=== PATIENT | female | born 1955 | race Caucasian/White ===

== ENCOUNTER → 2016-04-01 | Outpatient (CLI) | payer MEDICARE ==
--- NOTE | 2016-04-03 10:02 | MM ---
Reason for exam: screening (asymptomatic). Last mammogram was performed 5 years and 10 months ago. History: Patient is postmenopausal and is nulliparous. Physical Findings: A clinical breast exam by your physician is recommended on an annual basis and results should be correlated with mammographic findings. MG 3D Screening Mammo W/Cad Bilateral CC and MLO view(s) were taken. Prior study comparison: May 15, 2010, mammogram, performed at [facility]. The breast tissue is almost entirely fat. There is no discrete abnormality. ASSESSMENT: Negative, BI-RAD 1 RECOMMENDATION: Routine screening mammogram of both breasts in 1 year.
== END | disposition home or self-care (01) ==
LOC: RADMAMWWP 11:30
PROVIDERS: ATTEND Family Medicine
DX: Z12.31 Encounter for screening mammogram for malignant neoplasm of breast (principal)
CPT/HCPCS: 77063; G0202

== ENCOUNTER → 2017-04-22 | Outpatient (CLI) | payer MEDICARE | END | disposition home or self-care (01) | LOC: CPPFTMAIN 10:07 | PROVIDERS: ATTEND Family Medicine | DX: J44.9 Chronic obstructive pulmonary disease, unspecified (principal) | CPT/HCPCS: 94060; 94726; 94729 ==

== ENCOUNTER → 2019-12-29 | Outpatient (CLI) | payer MEDICARE ==
--- NOTE | 2019-12-29 15:43 | XR ---
EXAMINATION TYPE: XR hand complete LT DATE OF EXAM: 12/29/2019 COMPARISON: None HISTORY: Pain TECHNIQUE: Left hand is examined in 3 views. The ring is present during the exam. FINDINGS: No acute fracture or dislocation is evident. Soft tissues appear normal. Follow-up exams can be performed 7-10 days from acute trauma for continued pain. IMPRESSION: 1. No acute osseous abnormality.
== END | disposition home or self-care (01) ==
LOC: RADXRMAIN 15:07
PROVIDERS: ATTEND Nurse Practitioner Family
DX: M79.642 Pain in left hand (principal)

== ENCOUNTER → 2020-01-06 | Outpatient (CLI) | payer MEDICARE ==
--- NOTE | 2020-01-11 13:17 | MM ---
Reason for exam: screening (asymptomatic). Last mammogram was performed 3 years and 9 months ago. History: Patient is postmenopausal and is nulliparous. Physical Findings: A clinical breast exam by your physician is recommended on an annual basis and results should be correlated with mammographic findings. MG 3D Screening Mammo W/Cad Bilateral CC and MLO view(s) were taken. Prior study comparison: April 01, 2016, bilateral MG 3d screening mammo w/cad. May 15, 2010, mammogram, performed at [facility]. There are scattered fibroglandular densities. No significant changes when compared with prior studies. ASSESSMENT: Negative, BI-RAD 1 RECOMMENDATION: Routine screening mammogram of both breasts in 1 year.
== END | disposition home or self-care (01) ==
LOC: RADMAMWWP 13:00
PROVIDERS: ATTEND Family Medicine
DX: Z12.31 Encounter for screening mammogram for malignant neoplasm of breast (principal)
CPT/HCPCS: 77063; 77067

== ENCOUNTER 2020-04-12 06:14 | Day surgery (SDC) | payer MEDICARE ==
[2020-04-10 16:06] VITALS: BMI 37.8
[~2020-04-12 06:14] MED LIST: ATROPINE OPHTH SOLN 1% 5ML BTL BOTH EYES PRN; LACTATED RINGERS 1,000 ML IV SCH; MOXIFLOXACIN HCL 0.5% DROPS 3 ML BTL OP PRN; TETRACAINE 0.5% OPHTH (PF) DROPS 4 ML BTL OP PRN; TIMOLOL 0.5% OPHTH DROPS 5 ML BTL OP PRN
[2020-04-12] MEDS: CYCLOPENTOLATE 1% OPHTH SOLN 2 ML BTL OP PRN ×3 (06:40→06:59)
[2020-04-12] MEDS: PHENYLEPHRINE 2.5% OPHTH DRP 2ML OP PRN ×3 (06:47→07:05)
[2020-04-12 07:13] VITALS: TEMP 98.2
[2020-04-12] MEDS ORDERED: INSULIN ASPART (NovoLOG) 100 UNIT/ML VIAL SQ ONE (07:15)
[2020-04-12 07:22] LABS: Glucose,Whole Blood 226 mg/dL (75-99)
[2020-04-12] MEDS ORDERED: MIDAZOLAM 2 MG/2 ML VIAL ONE (07:29)
[2020-04-12] MEDS ORDERED: fentaNYL (PF) 50 MCG/ML 2 ML AMP ONE (07:29)
[2020-04-12] MEDS ORDERED: EPINEPHrine (PF) 0.3 ML in BALANCED SALT IRRIG SOLN COMB2 500 ML IRRIGATION ONE (07:43)
[2020-04-12] MEDS ORDERED: BALANCED SALT IRRIG SOLN COMB2 15 ML IRRIG.SOLN IRRIGATION ONE (07:45)
[2020-04-12] MEDS ORDERED: HYALURONATE SODIUM INTRAOCULAR 1 EACH SYRINGE (12MG/ML) INTRAOCULA ONE (07:47)
[2020-04-12] MEDS ORDERED: LIDOCAINE 1% (PF) 10MG/ML VIAL SQ ONE (07:54)
--- NOTE | 2020-04-12 08:04 | P.OP ---
Date of Procedure: 04/12/20 Preoperative Diagnosis: ns & cs & psc Postoperative Diagnosis: same Procedure(s) Performed: PIOL, OD Implants: [id number] 21.00 Anesthesia: MAC Surgeon: Pascual Zepeda Pathology: none sent Condition: stable Disposition: same day Indications for Procedure: blurry vision Operative Findings: no complications
[2020-04-12 08:09] VITALS: RESP 16
[2020-04-12 08:24] VITALS: BP 155/71; PULSE 77
--- NOTE | 2020-04-12 20:39 | OP ---
OPERATIVE REPORT DATE OF SURGERY: 04/12/2020 PROCEDURE: Phacoemulsification of cataract and intraocular lens implant of the right eye. PREOPERATIVE DIAGNOSIS: Nuclear sclerosis, cortical sclerosis, posterior subcapsular cataract. POSTOPERATIVE DIAGNOSIS: Nuclear sclerosis, cortical sclerosis, posterior subcapsular cataract. ESTIMATED BLOOD LOSS: Zero. SPECIMEN TAKEN: None. NARRATIVE: After obtaining the appropriate consent, the patient was brought to the operating room, where the patient was placed under cardiac monitoring and prepped and draped in the usual sterile manner. At the 11 o'clock position a 15-degree super sharp blade was used to create a paracentesis followed by instillation of 1% Xylocaine MPF 50:50 mix with BSS into the anterior chamber. This was followed by viscoelastic to stabilize the anterior chamber. At the 9 o'clock position a self-sealing corneal flap incision was created using 2.8 mm mani keratome. A cystotome was used to initiate a continuous tear capsulorrhexis which was completed with the Utrata forceps. A Binkhorst cannula was used to hydrodissect the lens nucleus followed by hydrodelineation. Phacoemulsification of the lens was performed utilizing phaco chop in 12.29 seconds at 11% power. The remaining cortical material was removed using the irrigation and aspiration mode followed by additional 1% Xylocaine MPF into the anterior chamber followed by viscoelastic to stabilize the capsular bag. A Bausch and Lomb MX 60E 21.0 diopters posterior chamber lens was placed into the capsular bag without difficulty. The remaining viscoelastic material was removed from the anterior chamber with the irrigation/aspiration. Balanced salt solution was used to normalize the intraocular pressure. The incision was checked for watertight integrity. The patient then received two drops of 0.5% Timolol followed by two drops Vigamox and was lightly patched and shielded in the usual manner. There were no complications from the procedure. The patient tolerated the procedure well and was returned to Recovery in good condition. MMODL / IJN: [id number] /
== END 2020-04-12 08:48 | disposition home or self-care (01) ==
LOC: OR 06:14
PROVIDERS: ATTEND Ophthalmology
DX: H25.811 Combined forms of age-related cataract, right eye (principal); Z98.42 Cataract extraction status, left eye; Z96.1 Presence of intraocular lens
CPT/HCPCS: 66984; C1780; J2250; J0171; J3010; J2001

== ENCOUNTER → 2021-11-22 | Outpatient (CLI) | payer MEDICARE ==
--- NOTE | 2021-11-23 07:47 | MM ---
Reason for Exam: Screening (asymptomatic). Last mammogram was performed 1 year(s) and 10 month(s) ago. Patient History: Menarche at age 13. Patient has no children. Postmenopausal. Risk Values: Daya 5 year model risk: 1.9%. NCI Lifetime model risk: 8.1%. Prior Study Comparison: 05/15/2010 Screening Mammogram, [facility]. 04/01/2016 Bilateral Screening Mammogram, [facility]. 01/06/2020 Bilateral Screening Mammogram, [facility]. Tissue Density: There are scattered fibroglandular densities. Findings: Analyzed By CAD. There is no suspicious group of microcalcifications or new suspicious mass in either breast. Overall Assessment: Negative, BI-RAD 1 Management: Screening Mammogram of both breasts in 1 year. A clinical breast exam by your physician is recommended on an annual basis and results should be correlated with mammographic findings. Electronically signed and approved by: Lakhwinder Mackey M.D. Radiologis
== END | disposition home or self-care (01) ==
LOC: RADMAMWWP 14:30
PROVIDERS: ATTEND Family Medicine
DX: Z12.31 Encounter for screening mammogram for malignant neoplasm of breast (principal); Z78.0 Asymptomatic menopausal state
CPT/HCPCS: 77063; 77067

== ENCOUNTER 2022-12-12 19:16 | Emergency (ER) | payer OTHER ==
[2022-12-12 19:29] VITALS: PULSE 94; TEMP 98
--- NOTE | 2022-12-12 19:55 | ED ---
Abdominal Pain HPI - General Chief Complaint: Abdominal Pain Stated Complaint: Abd Pain Time Seen by Provider: 12/12/22 19:30 Source: patient, EMS Mode of arrival: EMS - History of Present Illness Initial Comments: This patient is a 66-year-old woman who presents to have evaluation for right lower abdominal pain. The patient states that she had been well most of the day and then approximately 1 hour before coming in she had onset of sharp, severe, right lower quadrant pain. Patient states that it brought her to her knees. The pain has subsequently improved somewhat. No fever or chills. No associated symptoms. MD Complaint: abdominal pain Onset/Timin -: hour(s) Location: RLQ Radiation: none Migration to: no migration Severity: severe Quality: sharp Consistency: constant Improves With: nothing Worsens With: nothing Associated Symptoms: denies other symptoms - Related Data Home Medications Medication Instructions Recorded Confirmed Albuterol Sulfate [Proair Hfa] 1 - 2 puff INHALATION RT-Q6H PRN 04/10/20 12/12/22 Atorvastatin [Lipitor] 80 mg PO HS 04/10/20 12/12/22 Gabapentin [Neurontin] 300 mg PO TID 04/10/20 12/12/22 HYDROcodone/APAP 5-325MG [Semora 0.5 tab PO Q6HR PRN 04/10/20 12/12/22 5-325] Insulin Glargine,Hum.rec.anlog 30 units SQ DAILY 04/10/20 12/12/22 [Toujeo Solostar] Multivit-Min/Iron/Folic/Lutein 1 each PO DAILY 04/10/20 12/12/22 [Centrum Silver Women Tablet] busPIRone HCL 10 mg PO BID 04/10/20 12/12/22 Levothyroxine Sodium [Synthroid] 75 mcg PO DAILY 12/12/22 12/12/22 Magnesium 250 mg PO DAILY 12/12/22 12/12/22 Meclizine [Antivert] 25 mg PO DAILY PRN 12/12/22 12/12/22 Pioglitazone [Actos] 30 mg PO DAILY 12/12/22 12/12/22 Potassium Gluconate 99 mg PO DAILY 12/12/22 12/12/22 Semaglutide [Ozempic] 2 mg SQ TH 12/12/22 12/12/22 lisinopriL [Zestril] 10 mg PO DAILY 12/12/22 12/12/22 metFORMIN HCL 1,000 mg PO BID 12/12/22 12/12/22 Allergies Allergy/AdvReac Type Severity Reaction Status Date / Time No Known Allergies Allergy Verified 12/12/22 20:45 Review of Systems ROS Statement: Those systems with pertinent positive or pertinent negative responses have been documented in the HPI. ROS Other: All systems not noted in ROS Statement are negative. Constitutional: Denies: fever, chills Respiratory: Denies: cough, dyspnea Cardiovascular: Denies: chest pain, palpitations Gastrointestinal: Reports: abdominal pain. Denies: diarrhea, constipation, melena, hematochezia Genitourinary: Denies: dysuria, frequency, hematuria Musculoskeletal: Denies: back pain Skin: Denies: rash Neurological: Denies: headache, weakness, numbness Past Medical History Past Medical History: Asthma, COPD, Diabetes Mellitus, Fibromyalgia, Hyperlipidemia, Hypertension, Musculoskeletal Disorder, Thyroid Disorder Additional Past Medical History / Comment(s): IBS, neuropathy feet, sciatic pain History of Any Multi-Drug Resistant Organisms: None Reported Past Surgical History: Tonsillectomy Additional Past Surgical History / Comment(s): hemorrhoidectomy, left cataract removed Past Anesthesia/Blood Transfusion Reactions: No Reported Reaction Past Psychological History: Anxiety Smoking Status: Former smoker General Exam General appearance: alert, in no apparent distress Head exam: Present: atraumatic, normocephalic Eye exam: Present: normal appearance. Absent: scleral icterus, conjunctival injection ENT exam: Present: normal oropharynx Neck exam: Present: normal inspection Respiratory exam: Present: normal lung sounds bilaterally. Absent: respiratory distress, wheezes, rales, rhonchi, stridor Cardiovascular Exam: Present: regular rate, normal rhythm, normal heart sounds. Absent: systolic murmur, diastolic murmur, rubs, gallop GI/Abdominal exam: Present: soft, tenderness. Absent: distended, guarding, rebound, rigid, mass, pulsatile mass Extremities exam: Present: normal inspection, normal capillary refill. Absent: pedal edema, calf tenderness Back exam: Present: normal inspection. Absent: CVA tenderness (R), CVA tenderness (L) Neurological exam: Present: alert Skin exam: Present: warm, dry, intact, normal color. Absent: rash Course Vital Signs 12/12/22 12/12/22 19:19 22:38 Temperature 98 F Pulse Rate 94 94 Respiratory 15 16 Rate Blood Pressure 139/74 145/85 O2 Sat by Pulse 96 96 Oximetry Medical Decision Making - Medical Decision Making The patient had CT of the abdomen and pelvis which I interpreted as not showing acute surgical condition or kidney stone. No free air/obstruction Was pt. sent in by a medical professional or institution (, PA, AIRDROP SYSTEMS TECHNICIAN, urgent care, hospital, or senior living...) When possible be specific @ -[No] Did you speak to anyone other than the patient for history (EMS, parent, family, police, friend...)? What history was obtained from this source @ -[No] Did you review nursing and triage notes (agree or disagree)? Why? @ -[I reviewed and agree with nursing and triage notes] Were old charts reviewed (outside hosp., previous admission, EMS record, old EKG, old radiological studies, urgent care reports/EKG's, senior living records)? Report findings @ -[No old charts were reviewed] Differential Diagnosis (chest pain, altered mental status, abdominal pain women, abdominal pain men, vaginal bleeding, weakness, fever, dyspnea, syncope, headache, dizziness, GI bleed, back pain, seizure, CVA, palpatations, mental health, musculoskeletal)? @ -[Differential Abdominal Pain Women: Appendicitis, Cholecystitis, diverticulosis, ischemic bowel, pancreatitis, hepatitis, UTI, gastroenteritis, AAA, incarcerated hernia, bowel obstruction, constipation, inflammatory bowel, hepatitis, peptic ulcer disease, splenic infarction, perforated viscus, vulvitis, ovarian torsion, PID, kidney stone, placenta abruption, this is not meant to be an all-inclusive list EKG interpreted by me (3pts min.). @ -[As above] X-rays interpreted by me (1pt min.). @ -[None done] CT interpreted by me (1pt min.). @ -[I interpreted as above U/S interpreted by me (1pt. min.). @ -[None done] What testing was considered but not performed or refused? (CT, X-rays, U/S, labs)? Why? @ -[None] What meds were considered but not given or refused? Why? @ -[None] Did you discuss the management of the patient with other professionals (professionals i.e. , PA, AIRDROP SYSTEMS TECHNICIAN, lab, RT, psych nurse, social work lecturer, direct sales consultant, teacher, records officer, caseworker)? Give summary @ -[No] Was smoking cessation discussed for >3mins.? @ -[No] Was critical care preformed (if so, how long)? @ -[No] Were there social determinants of health that impacted care today? How? (Homelessness, low income, unemployed, alcoholism, drug addiction, transportation, low edu. Level, literacy, decrease access to med. care, [facility], rehab)? @ -[No] Was there de-escalation of care discussed even if they declined (Discuss DNR or withdrawal of care, Hospice)? DNR status @ -[No] What co-morbidities impacted this encounter? (DM, HTN, Smoking, COPD, CAD, Cancer, CVA, ARF, Chemo, Hep., AIDS, mental health diagnosis, sleep apnea, morbid obesity)? @ -[None] Was patient admitted / discharged? Hospital course, mention meds given and route, prescriptions, significant lab abnormalities, going to OR and other pertinent info. @ -[Patient is 67-year-old woman with right lower abdominal pain. The patient is feeling better on reevaluation when I discussed the study results. At this point she would like to go home. We discussed appropriate further care and follow-up as well as return parameters. Undiagnosed new problem with uncertain prognosis? @ -[No] Drug Therapy requiring intensive monitoring for toxicity (Heparin, Nitro, Insulin, Cardizem)? @ -[No] Were any procedures done? @ -[No] Diagnosis/symptom? @ -[Acute abdominal pain Acute, or Chronic, or Acute on Chronic? @ -[Acute Uncomplicated (without systemic symptoms) or Complicated (systemic symptoms)? @ -[Uncomplicated Side effects of treatment? @ -[No] Exacerbation, Progression, or Severe Exacerbation? @ -[No] Poses a threat to life or bodily function? How? (Chest pain, USA, NE, pneumonia, PE, COPD, DKA, ARF, appy, cholecystitis, CVA, Diverticulitis, Homicidal, Suicidal, threat to staff... and all critical care pts) @ -[No] - Lab Data Result diagrams: 12/12/22 20:37 10/12/23 20:37 Lab Results 12/12/22 12/12/22 12/12/22 Range/Units 20:37 20:37 20:37 WBC 7.4 (3.8-10.6) k/uL RBC 4.57 (3.80-5.40) m/uL Hgb 14.3 (11.4-16.0) gm/dL Hct 42.7 (34.0-46.0) % MCV 93.5 (80.0-100.0) fL MCH 31.3 (25.0-35.0) pg MCHC 33.5 (31.0-37.0) g/dL RDW 13.9 (11.5-15.5) % Plt Count 213 (150-450) k/uL MPV 9.2 Neutrophils % 52 % Lymphocytes % 32 % Monocytes % 6 % Eosinophils % 6 % Basophils % 1 % Neutrophils # 3.8 (1.3-7.7) k/uL Lymphocytes # 2.4 (1.0-4.8) k/uL Monocytes # 0.5 (0-1.0) k/uL Eosinophils # 0.5 (0-0.7) k/uL Basophils # 0.0 (0-0.2) k/uL Sodium 139 (137-145) mmol/L Potassium 4.4 (3.5-5.1) mmol/L Chloride 106 (98-107) mmol/L Carbon Dioxide 21 L (22-30) mmol/L Anion Gap 12 mmol/L BUN 14 (7-17) mg/dL Creatinine 0.54 (0.52-1.04) mg/dL Est GFR (CKD-EPI)AfAm >90 (>60 ml/min/1.73 sqM) Est GFR (CKD-EPI)NonAf >90 (>60 ml/min/1.73 sqM) Glucose 96 (74-99) mg/dL Calcium 9.3 (8.4-10.2) mg/dL Total Bilirubin 0.4 (0.2-1.3) mg/dL AST 19 (14-36) U/L ALT 15 (4-34) U/L Alkaline Phosphatase 68 (38-126) U/L Total Protein 7.0 (6.3-8.2) g/dL Albumin 4.0 (3.5-5.0) g/dL Amylase 60 (30-110) U/L Lipase 229 (23-300) U/L Urine Color Colorless Urine Appearance Clear (Clear) Urine pH 5.0 (5.0-8.0) Ur Specific Welsh 1.016 (1.001-1.035) Urine Protein Negative (Negative) Urine Glucose (UA) 4+ H (Negative) Urine Ketones Negative (Negative) Urine Blood Negative (Negative) Urine Nitrite Negative (Negative) Urine Bilirubin Negative (Negative) Urine Urobilinogen <2.0 (<2.0) mg/dL Ur Leukocyte Esterase Moderate H (Negative) Urine RBC 1 (0-5) /hpf Urine WBC 10 H (0-5) /hpf Ur Squamous Epith Cells 1 (0-4) /hpf Urine Bacteria Rare H (None) /hpf - EKG Data -: EKG Interpreted by Me EKG shows normal: sinus rhythm, QRS complexes (Low-voltage QRS) Rate: normal (Rate 82 bpm) Interpretation: other (Possible old inferior NE) Disposition Clinical Impression: Abdominal pain Disposition: HOME SELF-CARE Condition: Good Instructions (If sedation given, give patient instructions): Abdominal Pain (ED) Is patient prescribed a controlled substance at d/c from ED?: No Referrals: Jerome Spicer Jr, [Primary Care Provider] - 1-2 days
--- NOTE | 2022-12-12 20:18 | CT ---
EXAMINATION TYPE: CT abdomen pelvis wo con DATE OF EXAM: 12/12/2022 COMPARISON: 11/21/2010 HISTORY: 66-year-old female Sharp RLQ pain x1hr. CT DLP: 949.6 mGycm. Automated exposure control for dose reduction was used. TECHNIQUE: Contiguous axial scanning of the abdomen and pelvis without IV contrast. Coronal and sagit lexis reconstructions performed. FINDINGS: Heart normal size without pericardial effusion. Calcified granuloma left base with some strandy atele ctasis of the lower lungs. Coronary artery calcifications. Aortic valvular calcifications. Tiny hiatal hernia. Noncontrast appearance of the liver, gallbladder, adrenal glands, kidneys, spleen with hilar splenule , and pancreas show no gross abnormality. Moderate atherosclerotic calcifications abdominal aorta. There are severe segmental stenoses in the b ilateral common iliac arteries. No dilated bowel, free fluid, or free air. No mesenteric or retroperitoneal lymphadenopathy. Normal appendix. Mild scattered stool. No pericolonic inflammatory change. Urine distended. Tiny pelvic phleboliths. Small postmenopausal uterus anteverted. Small bilateral ova smita. No abnormal fluid collection in the pelvis or pelvic lymphadenopathy. Bones: Mild degenerative change of the hips. Advanced hypertrophic facet arthropathy mid to lower lum bar spine with grade 2 anterolisthesis L4-L5. Mild spinal canal narrowing at L4-L5 from disc bulge an d ligamentum flavum thickening. IMPRESSION: 1. Normal appendix. No acute inflammatory process identified in the abdomen or pelvis to explain the patient's symptoms. 2. Tiny hiatal hernia. 3. Advanced facet arthropathy lower lumbar spine with grade 2 anterolisthesis at L4-L5.
[2022-12-12 20:47] LABS: Basophils % (A) 1 %; Eosinophils # (A) 0.5 k/uL (0-0.7); Eosinophils % (A) 6 %; HCT 42.7 % (34.0-46.0); HGB 14.3 gm/dL (11.4-16.0); Lymphocytes # (A) 2.4 k/uL (1.0-4.8); Lymphocytes % (A) 32 %; MCH 31.3 pg (25.0-35.0); MCHC 33.5 g/dL (31.0-37.0); MCV 93.5 fL (80.0-100.0); Mean Platelet Volume 9.2; Monocytes # (A) 0.5 k/uL (0-1.0); Monocytes % (A) 6 %; Neutrophils # (A) 3.8 k/uL (1.3-7.7); Neutrophils % (A) 52 %; Platelet Count 213 k/uL (150-450); RBC 4.57 m/uL (3.80-5.40); RDW 13.9 % (11.5-15.5); WBC 7.4 k/uL (3.8-10.6)
[2022-12-12 20:55] LABS: ALT 15 U/L (4-34); AST 19 U/L (14-36); African American GFR (CKD) >90 (>60 ml/min/1.73 sqM); Alkaline Phosphatase 68 U/L (38-126); Amylase 60 U/L (30-110); Anion Gap 12 mmol/L; Blood Urea Nitrogen 14 mg/dL (7-17); Calcium 9.3 mg/dL (8.4-10.2); Carbon Dioxide 21 mmol/L (22-30); Chloride 106 mmol/L (98-107); Glucose 96 mg/dL (74-99); Lipase 229 U/L (23-300); Non-African American GFR(CKD) >90 (>60 ml/min/1.73 sqM); Potassium 4.4 mmol/L (3.5-5.1); Sodium 139 mmol/L (137-145); Total Bilirubin 0.4 mg/dL (0.2-1.3)
[2022-12-12 21:10] LABS: Appearance,Urine Clear (Clear); Bacteria,Urine Rare /hpf; Bilirubin,Urine Negative (Negative); Blood,Urine Negative (Negative); Color,Urine Colorless; Glucose,Urine (UA) 4+ (Negative); Ketones,Urine Negative (Negative); Leukocyte Esterase,Urine Moderate (Negative); Nitrite,Urine Negative (Negative); Protein,Urine Negative (Negative); RBC,Urine 1 /hpf (0-5); Specific Gravity,Urine 1.016 (1.001-1.035); Squamous Epithelial Cell,Urine 1 /hpf (0-4); Urobilinogen,Urine <2.0 mg/dL (<2.0); WBC,Urine 10 /hpf (0-5)
[2022-12-12 22:47] VITALS: BP 145/85; RESP 16
== END 2022-12-12 22:38 | disposition home or self-care (01) ==
LOC: EC 19:16
DX: R10.31 Right lower quadrant pain (principal); E78.5 Hyperlipidemia, unspecified; E07.9 Disorder of thyroid, unspecified; I10 Essential (primary) hypertension; E11.9 Type 2 diabetes mellitus without complications; J44.9 Chronic obstructive pulmonary disease, unspecified; I25.2 Old myocardial infarction; F41.9 Anxiety disorder, unspecified; Z87.891 Personal history of nicotine dependence; Z79.84 Long term (current) use of oral hypoglycemic drugs; Z79.890 Hormone replacement therapy; Z79.899 Other long term (current) drug therapy
CPT/HCPCS: 36415; 74176; 80053; 81001; 82150; 83690; 85025; 93005; 99285

== ENCOUNTER → 2022-12-18 | Outpatient (CLI) | payer OTHER ==
--- NOTE | 2022-12-19 12:38 | MM ---
Reason for Exam: Screening (asymptomatic). Last mammogram was performed 1 year(s) and 1 month(s) ago. Patient History: Menarche at age 13. Patient has no children. Postmenopausal. Risk Values: Daya 5 year model risk: 2.0%. NCI Lifetime model risk: 7.9%. Prior Study Comparison: 04/01/2016 Bilateral Screening Mammogram, [facility]. 01/06/2020 Bilateral Screening Mammogram, [facility]. 11/22/2021 Bilateral MG 3D screening mammo w/cad, [facility]. Tissue Density: The breast tissue is almost entirely fat. Findings: Analyzed By CAD. There is no suspicious group of microcalcifications or new suspicious mass. Overall Assessment: Negative, BI-RAD 1 Management: Screening Mammogram of both breasts in [address] [facility] will attempt to contact patient to return for supplemental views and ultrasound if indicated. Patient should continue monthly self-breast exams. A clinical breast exam by your physician is recommended on an annual basis. This exam should not preclude additional follow-up of suspicious palpable abnormalities. Note on Daya scores and lifetime risk: 1. A Daya score greater than 3% is considered moderate risk. If this is the case, consider specialist referral to assess eligibility for a risk reducing agent. 2. If overall lifetime risk for the development of breast cancer is 20% or higher, the patient may qualify for future screening with alternating mammogram and breast MRI. Electronically signed and approved by: Reza Archibald DO
== END | disposition home or self-care (01) ==
LOC: RADMAMWWP 14:36
PROVIDERS: ATTEND Family Medicine
DX: Z12.31 Encounter for screening mammogram for malignant neoplasm of breast (principal); Z78.0 Asymptomatic menopausal state
CPT/HCPCS: 77063; 77067

== ENCOUNTER 2023-06-06 04:12 | Emergency (ER) | payer OTHER ==
[2023-06-06] MEDS: SODIUM CHLORIDE 0.9% 1,000 ML IV STA (06:05)
[2023-06-06] MEDS: ONDANSETRON 4 MG/2 ML VIAL IVP STA (06:05)
[2023-06-06 06:32] LABS: Basophils # (A) 0.1 k/uL (0-0.2); Basophils % (A) 1 %; Eosinophils # (A) 0.6 k/uL (0-0.7); Eosinophils % (A) 4 %; HCT 49.5 % (34.0-46.0); HGB 15.7 gm/dL (11.4-16.0); Lymphocytes # (A) 1.8 k/uL (1.0-4.8); Lymphocytes % (A) 13 %; MCH 30.3 pg (25.0-35.0); MCHC 31.8 g/dL (31.0-37.0); MCV 95.1 fL (80.0-100.0); Mean Platelet Volume 8.7; Monocytes # (A) 0.8 k/uL (0-1.0); Monocytes % (A) 6 %; Neutrophils # (A) 9.7 k/uL (1.3-7.7); Neutrophils % (A) 74 %; Platelet Count 276 k/uL (150-450); RDW 13.9 % (11.5-15.5); WBC 13.1 k/uL (3.8-10.6)
--- NOTE | 2023-06-06 06:35 | ED ---
Nausea/Vomiting/Diarrhea HPI - General Chief complaint: Nausea/Vomiting/Diarrhea Stated complaint: NVD abd pain Time Seen by Provider: 06/06/23 06:02 Source: patient, family, RN notes reviewed Mode of arrival: ambulatory Limitations: no limitations - History of Present Illness Initial comments: This is a 67-year-old female who presents to the emergency department for nausea, vomiting, and diarrhea. Symptoms started 3 days ago. She has generalized abdominal cramping from all of the vomiting and diarrhea, but denies any severe pain. She does have associated acid reflux. She was recently visiting her fianc in the hospital, and wonders if she may have gotten sick from there. Denies any fever/chills. MD complaint: nausea, vomiting, diarrhea - Related Data Home Medications Medication Instructions Recorded Confirmed Albuterol Sulfate [Proair Hfa] 1 - 2 puff INHALATION RT-Q6H PRN 04/10/20 12/12/22 Atorvastatin [Lipitor] 80 mg PO HS 04/10/20 12/12/22 Gabapentin [Neurontin] 300 mg PO TID 04/10/20 12/12/22 HYDROcodone/APAP 5-325MG [Evans 0.5 tab PO Q6HR PRN 04/10/20 12/12/22 5-325] Insulin Glargine,Hum.rec.anlog 30 units SQ DAILY 04/10/20 12/12/22 [Melanie Pierreostlibby] Multivit-Min/Iron/Folic/Lutein 1 each PO DAILY 04/10/20 12/12/22 [Centrum Silver Women Tablet] busPIRone HCL 10 mg PO BID 04/10/20 12/12/22 Levothyroxine Sodium [Synthroid] 75 mcg PO DAILY 12/12/22 12/12/22 Magnesium 250 mg PO DAILY 12/12/22 12/12/22 Meclizine [Antivert] 25 mg PO DAILY PRN 12/12/22 12/12/22 Pioglitazone [Actos] 30 mg PO DAILY 12/12/22 12/12/22 Potassium Gluconate 99 mg PO DAILY 12/12/22 12/12/22 Semaglutide [Ozempic] 2 mg SQ TH 12/12/22 12/12/22 lisinopriL [Zestril] 10 mg PO DAILY 12/12/22 12/12/22 metFORMIN HCL 1,000 mg PO BID 12/12/22 12/12/22 Previous Rx's Medication Instructions Recorded Ondansetron Odt [Zofran Odt] 4 mg PO Q8HR PRN #20 tab 06/06/23 Allergies Allergy/AdvReac Type Severity Reaction Status Date / Time No Known Allergies Allergy Verified 12/12/22 20:45 Review of Systems ROS Statement: Those systems with pertinent positive or pertinent negative responses have been documented in the HPI. ROS Other: All systems not noted in ROS Statement are negative. Past Medical History Past Medical History: Asthma, COPD, Diabetes Mellitus, Fibromyalgia, Hyper lipidemia, Hypertension, Musculoskeletal Disorder, Thyroid Disorder Additional Past Medical History / Comment(s): IBS, neuropathy feet, sciatic pain History of Any Multi-Drug Resistant Organisms: None Reported Past Surgical History: Tonsillectomy Additional Past Surgical History / Comment(s): hemorrhoidectomy, left cataract removed Past Anesthesia/Blood Transfusion Reactions: No Reported Reaction Past Psychological History: Anxiety Smoking Status: Former smoker Past Alcohol Use History: None Reported Past Drug Use History: None Reported General Exam Limitations: no limitations General appearance: alert, in no apparent distress Head exam: Present: atraumatic, normocephalic, normal inspection Respiratory exam: Present: normal lung sounds bilaterally. Absent: respiratory distress, wheezes, rales, rhonchi, stridor Cardiovascular Exam: Present: regular rate, normal rhythm, normal heart sounds. Absent: systolic murmur, diastolic murmur, rubs, gallop, clicks GI/Abdominal exam: Present: soft, normal bowel sounds. Absent: distended, tenderness, guarding, rebound, rigid Neurological exam: Present: alert, oriented X3, CN II-XII intact Psychiatric exam: Present: normal affect, normal mood Skin exam: Present: warm, dry, intact, normal color. Absent: rash Course Vital Signs 06/06/23 06/06/23 04:27 08:59 Temperature 97.6 F 97.9 F Pulse Rate 107 H 70 Respiratory 19 16 Rate Blood Pressure 131/75 119/74 O2 Sat by Pulse 96 96 Oximetry Medical Decision Making - Medical Decision Making This is a 67 year old female who presents to the emergency department for nausea and vomiting. Was pt. sent in by a medical professional or institution? @ -No Did you speak to anyone other than the patient for history? @ -No Did you review nursing and triage notes? @ -Yes, and I agree, it is accurate with regards to the patient's symptoms. Were old charts reviewed? @ -No Differential Diagnosis? @ -Differential Nausea and Vomiting: Gastroenteritis, cholecystitis, appendicitis, pancreatitis, migraine, benign positional vertigo, food borne illness, pyelonephritis, irritable bowel syndrome, influenza, Covid, GERD, incarcerated hernia, intestinal obstruction, this is not meant to be an all-inclusive list. EKG interpreted by me (3pts min.)? @ -Not obtained X-rays interpreted by me (1pt min.)? @ -Chest x-ray obtained, my interpretation identifies no localized consolidations or infiltrates. X-ray of the abdomen obtained. Interpretation identifies no evidence of bowel loop dilation. CT interpreted by me (1pt min.)? @ -Not obtained U/S interpreted by me (1pt. min.)? @ -Not obtained What testing was considered but not performed? (CT, X-rays, U/S, labs)? Why? @ -None What meds were considered but not given? Why? @ -None Did you discuss the management of the patient with other professionals? @ -No Did you reconcile home meds? @ -No Was smoking cessation discussed for >3mins.? @ -No Was critical care preformed (if so, how long)? @ -No Were there social determinants of health that impacted care today? How? (Homelessness, low income, unemployed, alcoholism, drug addiction, transportation, low edu. Level, literacy, decrease access to med. care, correction, rehab)? @ -No Was there de-escalation of care discussed even if they declined? (Discuss DNR or withdrawal of care, Hospice)? @ -No What co-morbidities impacted this encounter? (DM, HTN, Smoking, COPD, CAD, Cancer, CVA, Hep., AIDS, mental health diagnosis, sleep apnea, morbid obesity)? @ -IBS Was patient admitted / discharged? @ -Discharged. Lab work demonstrates mild leukocytosis, which is likely reactive, and was otherwise unremarkable. COVID, influenza, and RSV testing were negative. Chest x-ray reveals no acute process. X-ray of the abdomen demonstrates gas and an overall nonobstructive pattern. Patient treated with IV fluids, famotidine, and Zofran with significant relief in symptoms. She was tolerating oral intake afterwards and felt stable for discharge home. Prescription for Zofran provided with dosing instructions reviewed. Advised [id number] famotidine or pantoprazole for any additional esophageal reflux. Also advised [id number] Imodium as needed for diarrhea and close follow-up with her primary care provider. Undiagnosed new problem with uncertain prognosis? @ -None Drug Therapy requiring intensive monitoring for toxicity (Heparin, Nitro, Insulin, Cardizem)? @ -None Were any procedures done? @ -None Diagnosis/symptom? @ -Gastroenteritis Acute, or Chronic, or Acute on Chronic? @ -Acute Uncomplicated (without systemic symptoms) or Complicated (systemic symptoms)? @ -Uncomplicated Side effects of treatment? @ -None Exacerbation, Progression, or Severe Exacerbation] @ -Not applicable Poses a threat to life or bodily function? @ -No Return precautions reviewed in depth, the patient is instructed to return to the emergency department with any new, worsening, or concerning symptoms. Patient verbalized understanding. This case was discussed in detail with the attending ED physician, Dr. Ojeda. Presentation, findings, and treatment plan discussed in detail as well. - Lab Data Result diagrams: 06/06/23 06:06 06/06/23 06:06 Lab Results 06/06/23 06/06/23 06/06/23 Range/Units 06:06 06:06 06:31 WBC 13.1 H (3.8-10.6) k/uL RBC 5.20 (3.80-5.40) m/uL Hgb 15.7 (11.4-16.0) gm/dL Hct 49.5 H (34.0-46.0) % MCV 95.1 (80.0-100.0) fL MCH 30.3 (25.0-35.0) pg MCHC 31.8 (31.0-37.0) g/dL RDW 13.9 (11.5-15.5) % Plt Count 276 (150-450) k/uL MPV 8.7 Neutrophils % 74 % Lymphocytes % 13 % Monocytes % 6 % Eosinophils % 4 % Basophils % 1 % Neutrophils # 9.7 H (1.3-7.7) k/uL Lymphocytes # 1.8 (1.0-4.8) k/uL Monocytes # 0.8 (0-1.0) k/uL Eosinophils # 0.6 (0-0.7) k/uL Basophils # 0.1 (0-0.2) k/uL Sodium 139 (137-145) mmol/L Potassium 4.0 (3.5-5.1) mmol/L Chloride 107 (98-107) mmol/L Carbon Dioxide 19 L (22-30) mmol/L Anion Gap 13 mmol/L BUN 30 H (7-17) mg/dL Creatinine 0.75 (0.52-1.04) mg/dL Est GFR (CKD-EPI)AfAm >90 (>60 ml/min/1.73 sqM) Est GFR (CKD-EPI)NonAf 84 (>60 ml/min/1.73 sqM) Glucose 151 H (74-99) mg/dL Calcium 9.7 (8.4-10.2) mg/dL Total Bilirubin 0.5 (0.2-1.3) mg/dL AST 22 (14-36) U/L ALT 21 (4-34) U/L Alkaline Phosphatase 76 (38-126) U/L Total Protein 8.2 (6.3-8.2) g/dL Albumin 4.7 (3.5-5.0) g/dL Lipase 103 (23-300) U/L Urine Color Yellow Urine Appearance Cloudy H (Clear) Urine pH 5.5 (5.0-8.0) Ur Specific [place] 1.026 (1.001-1.035) Urine Protein 2+ H (Negative) Urine Glucose (UA) 3+ H (Negative) Urine Ketones Negative (Negative) Urine Blood Negative (Negative) Urine Nitrite Negative (Negative) Urine Bilirubin Negative (Negative) Urine Urobilinogen <2.0 (<2.0) mg/dL Ur Leukocyte Esterase Large H (Negative) Urine WBC 27 H (0-5) /hpf Ur Squamous Epith Cells 4 (0-4) /hpf Urine Bacteria Rare H (None) /hpf Cellular Casts 2 (0) /lpf Hyaline Casts 21 H (0-2) /lpf Urine Mucus Many H (None) /hpf Influenza Type A (PCR) (Not Detectd) Influenza Type B (PCR) (Not Detectd) RSV (PCR) (Not Detectd) SARS-CoV-2 (PCR) (Not Detectd) 06/06/23 Range/Units 06:39 WBC (3.8-10.6) k/uL RBC (3.80-5.40) m/uL Hgb (11.4-16.0) gm/dL Hct (34.0-46.0) % MCV (80.0-100.0) fL MCH (25.0-35.0) pg MCHC (31.0-37.0) g/dL RDW (11.5-15.5) % Plt Count (150-450) k/uL MPV Neutrophils % % Lymphocytes % % Monocytes % % Eosinophils % % Basophils % % Neutrophils # (1.3-7.7) k/uL Lymphocytes # (1.0-4.8) k/uL Monocytes # (0-1.0) k/uL Eosinophils # (0-0.7) k/uL Basophils # (0-0.2) k/uL Sodium (137-145) mmol/L Potassium (3.5-5.1) mmol/L Chloride (98-107) mmol/L Carbon Dioxide (22-30) mmol/L Anion Gap mmol/L BUN (7-17) mg/dL Creatinine (0.52-1.04) mg/dL Est GFR (CKD-EPI)AfAm (>60 ml/min/1.73 sqM) Est GFR (CKD-EPI)NonAf (>60 ml/min/1.73 sqM) Glucose (74-99) mg/dL Calcium (8.4-10.2) mg/dL Total Bilirubin (0.2-1.3) mg/dL AST (14-36) U/L ALT (4-34) U/L Alkaline Phosphatase (38-126) U/L Total Protein (6.3-8.2) g/dL Albumin (3.5-5.0) g/dL Lipase (23-300) U/L Urine Color Urine Appearance (Clear) Urine pH (5.0-8.0) Ur Specific [place] (1.001-1.035) Urine Protein (Negative) Urine Glucose (UA) (Negative) Urine Ketones (Negative) Urine Blood (Negative) Urine Nitrite (Negative) Urine Bilirubin (Negative) Urine Urobilinogen (<2.0) mg/dL Ur Leukocyte Esterase (Negative) Urine WBC (0-5) /hpf Ur Squamous Epith Cells (0-4) /hpf Urine Bacteria (None) /hpf Cellular Casts (0) /lpf Hyaline Casts (0-2) /lpf Urine Mucus (None) /hpf Influenza Type A (PCR) Not Detected (Not Detectd) Influenza Type B (PCR) Not Detected (Not Detectd) RSV (PCR) Not Detected (Not Detectd) SARS-CoV-2 (PCR) Not Detected (Not Detectd) - Radiology Data Radiology results: report reviewed, image reviewed Disposition Clinical Impression: Gastroenteritis Disposition: HOME SELF-CARE Instructions (If sedation given, give patient instructions): Acute Nausea and Vomiting (ED), Acute Diarrhea (ED) Additional Instructions: Return to the emergency department with any new, worsening, or concerning symptoms. You can take the Zofran up to every 8 hours as needed for nausea and vomiting. You can take [id number] Imodium as needed for the diarrhea. Slowly advance your diet as tolerated and remain well-hydrated. Follow up with your primary care provider in 1-2 days. Prescriptions: Ondansetron Odt [Zofran Odt] 4 mg PO Q8HR PRN #20 tab PRN Reason: Nausea And Vomiting Is patient prescribed a controlled substance at d/c from ED?: No Referrals: Jerome Spicer Jr, DO [Primary Care Provider] - 1-2 days Time of Disposition: 08:34
[2023-06-06 06:51] LABS: ALT 21 U/L (4-34); AST 22 U/L (14-36); African American GFR (CKD) >90 (>60 ml/min/1.73 sqM); Albumin 4.7 g/dL (3.5-5.0); Alkaline Phosphatase 76 U/L (38-126); Anion Gap 13 mmol/L; Blood Urea Nitrogen 30 mg/dL (7-17); Calcium 9.7 mg/dL (8.4-10.2); Carbon Dioxide 19 mmol/L (22-30); Chloride 107 mmol/L (98-107); Glucose 151 mg/dL (74-99); Lipase 103 U/L (23-300); Non-African American GFR(CKD) 84 (>60 ml/min/1.73 sqM); Sodium 139 mmol/L (137-145); Total Bilirubin 0.5 mg/dL (0.2-1.3); Total Protein 8.2 g/dL (6.3-8.2)
[2023-06-06] MEDS: FAMOTIDINE 20 MG/2 ML VIAL IV STA (06:57)
--- NOTE | 2023-06-06 07:03 | XR ---
EXAMINATION TYPE: XR chest 2V DATE OF EXAM: 06/06/2023 COMPARISON: Outside chest x-ray November 21, 2010 HISTORY: Chest pain. TECHNIQUE: Frontal and lateral views of the chest are obtained. FINDINGS: There is no focal air space opacity, pleural effusion, or pneumothorax seen. The cardiac silhouette size is stable and within normal limits with atherosclerotic change in the thoracic aorta redemonstrated. The osseous structures are intact. IMPRESSION: No acute cardiopulmonary process.
--- NOTE | 2023-06-06 07:04 | XR ---
EXAMINATION TYPE: XR abdomen 1V DATE OF EXAM: 06/06/2023 6:51 AM CLINICAL HISTORY: Vomiting TECHNIQUE: Two frontal KUB images of the abdomen are obtained. COMPARISON: CT abdomen and pelvis December 12, 2022 FINDINGS: Gas is seen in nondistended stomach. Scattered gas is seen in non-distended small and large bowel loops. A few scattered air-fluid levels which is nonspecific finding. No suspicious calcificat ions. The lung bases are clear and the osseous structures are intact. IMPRESSION: Overall nonspecific but favor nonobstructive bowel gas pattern.
[2023-06-06 07:29] LABS: Appearance,Urine Cloudy (Clear); Color,Urine Yellow; Glucose,Urine (UA) 3+ (Negative); PH, Urine 5.5 (5.0-8.0); Protein,Urine 2+ (Negative); Specific Gravity,Urine 1.026 (1.001-1.035)
[2023-06-06 07:30] LABS: Bacteria,Urine Rare /hpf; Bilirubin,Urine Negative (Negative); Blood,Urine Negative (Negative); Cellular Casts,Urine 2 /lpf (0); Hyaline Casts,Urine 21 /lpf (0-2); Ketones,Urine Negative (Negative); Leukocyte Esterase,Urine Large (Negative); Mucus,Urine Many /hpf; Nitrite,Urine Negative (Negative); Squamous Epithelial Cell,Urine 4 /hpf (0-4); Urobilinogen,Urine <2.0 mg/dL (<2.0); WBC,Urine 27 /hpf (0-5)
[2023-06-06] MEDS: KETOROLAC 15 MG/ML 1 ML VIAL IVP STA ×2 (07:37→08:43)
[2023-06-06] MEDS: DEXAMETHASONE SOD PHOSPHATE 10 MG/ML 1 ML VIAL IVP STA (08:40)
[2023-06-06] MEDS: ONDANSETRON 4 MG ODT STARTER PACK 2 TAB BTL PO STA (08:41)
[2023-06-06] MEDS: HYDROmorphone 0.5 MG/0.5 ML SYRINGE IVP STA (08:41)
[2023-06-06 09:20] VITALS: BP 119/74; PULSE 70; RESP 16; TEMP 97.9
== END 2023-06-06 09:01 | disposition home or self-care (01) ==
LOC: EC 04:12
DX: K52.9 Noninfective gastroenteritis and colitis, unspecified (principal); Z11.52 Encounter for screening for COVID-19; Z87.891 Personal history of nicotine dependence
CPT/HCPCS: 36415; 71046; 74018; 80053; 81001; 83690; 85025; 87636; 96361; 96374; 96375; 99284

== ENCOUNTER → 2023-12-09 | Outpatient (CLI) | payer MEDICARE, OTHER ==
--- NOTE | 2023-12-09 13:25 | US ---
EXAMINATION TYPE: US arterial LE single level DATE OF EXAM: 12/09/2023 12:57 PM CLINICAL INDICATION: Female, 67 years old with history of M79.604 PAIN IN R LEG M79.671 PAIN IN R FT; History of: Smoker: Previous Hypertension: Yes Diabetic: Yes Hyperlipidemia: Yes TIA/CVA: No Previous Vascular Surgery: No IL: No Vascular Ulcers: No Claudication: No Gangrene: No Doppler Waveforms: Right: Monophasic Left: Monophasic Right Brachial Pressure: 130 Left Brachial Pressure: 124 Ankle-Brachial Indices: Right: 0.58 Left: 0.75 (Vessel hardening > 1.4; Normal 0.9 - 1.4, Moderate 0.7 - 0.9, Severe 0.5-0.7) IMPRESSION: 1. Severe right lower extremity peripheral arteriovascular disease suggested. 2. Moderate left lower extremity peripheral arteriovascular disease suggested. [facility], , 12/09/2023 1:22 PM
--- NOTE | 2023-12-09 13:36 | XR ---
EXAMINATION TYPE: XR hand complete LT DATE OF EXAM: 12/09/2023 CLINICAL HISTORY: pain TECHNIQUE: Frontal, lateral and oblique images of the left hand are obtained. COMPARISON: None. FINDINGS: There is no acute fracture/dislocation evident. The joint spaces appear within normal limi ts. The overlying soft tissue appears unremarkable. IMPRESSION: There is no acute fracture or dislocation. ICD 10 NO FRACTURE, INITIAL EVALUATION [facility], , 12/09/2023 1:34 PM
== END | disposition home or self-care (01) ==
LOC: RADUSWWP 11:54
PROVIDERS: ATTEND Family Medicine
DX: M79.604 Pain in right leg (principal); M79.671 Pain in right foot; M79.645 Pain in left finger(s)
CPT/HCPCS: 93922

== ENCOUNTER → 2024-01-01 | Outpatient (CLI) | payer MEDICARE, OTHER ==
--- NOTE | 2024-01-01 13:53 | MM ---
Reason for Exam: Screening (asymptomatic). Last screening mammogram was performed 12 month(s) ago. Patient History: Menarche at age 13. Patient has no children. Postmenopausal. Risk Values: Daya 5 year model risk: 2.0%. NCI Lifetime model risk: 7.3%. Prior Study Comparison: 01/06/2020 Bilateral Screening Mammogram, [facility]. 11/22/2021 Bilateral MG 3D screening mammo w/cad, [facility]. 12/18/2022 Bilateral MG 3D screening mammo w/cad, [facility]. Tissue Density: The breasts are almost entirely fatty. Findings: Analyzed By CAD. Right breast: There is no suspicious group of microcalcifications or new suspicious mass. Left breast: There is no suspicious group of microcalcifications or new suspicious mass. Overall Assessment: Negative, BI-RAD 1 Management: Screening Mammogram of both breasts in [address] [facility] will attempt to contact patient to return for supplemental views and ultrasound if indicated. Patient should continue monthly self-breast exams. A clinical breast exam by your physician is recommended on an annual basis. This exam should not preclude additional follow-up of suspicious palpable abnormalities. Note on Daya scores and lifetime risk: 1. A Daya score greater than 3% is considered moderate risk. If this is the case, consider specialist referral to assess eligibility for a risk reducing agent. 2. If overall lifetime risk for the development of breast cancer is 20% or higher, the patient may qualify for future screening with alternating mammogram and breast MRI. [facility], , 01/01/2024 1:50 PM. Electronically signed and approved by: Reza Archibald DO
--- NOTE | 2024-01-01 17:03 | BD ---
EXAMINATION TYPE: Axial Bone Density DATE OF EXAM: 01/01/2024 CLINICAL HISTORY: 68 years old Female. ICD-10 CODE: Z78.0 POSTMENOPAUSAL , Z78.0 Height: 61 Weight: 204.8 FRAX RISK QUESTIONS: Alcohol (3 or more units per day): no Family History (Parent hip fracture): no Glucocorticoids (More than 3mos): no (Ex: prednisone, prednisolone, methylprednisolone, dexamethasone, and hydrocortisone). History of Fracture in Adulthood: no Secondary Osteoporosis: 1. Type 1 Diabetes: no 2. Hyperthyroidism: no 3. Menopause before 45: yes 4. Malnutrition: no 5. Chronic liver disease: no Rheumatoid Arthritis: no Current Tobacco Use: no RISK FACTORS HISTORY OF: Hip Fracture (Right/Left): no Spine Fracture: no History of Wrist Fracture: no Surgery to Spine/Hip(right/left)/Wrist (right/left): no MEDICATIONS: Thyroid Medications: Levothyroxine How Long: past 10 years Osteoporosis Medications: no EXAM MEASUREMENTS: Bone mineral densitometry was performed using the [employer] System. Bone mineral density as measured about the Lumbar spine is: ----- L1-L4(G/cm2): 1.136 T Score Values are as follows: ----- L1: -0.6 ----- L2: -0.7 ----- L3: 0.1 ----- L4: -0.5 ----- L1-L4: -0.4 Z Score Values are as follows: ----- L1: 0.0 ----- L2: 0.0 ----- L3: 0.8 ----- L4: 0.2 ----- L1-L4: 0.3 Baseline Study Bone mineral density about the R hip (g/cm2): 0.898 Bone mineral density about the L hip (g/cm2): 1.035 T Score values are as follows: -----R Neck: -1.8 -----L Neck: -0.7 -----R Total: -0.9 -----L Total: 0.2 Z Score values are as follows: -----R Neck: -0.9 -----L Neck: 0.2 -----R Total: -0.3 -----L Total: 0.8 Baseline Study FRAX%s: The graph provided illustrates a 9.0% chance for a major osteoporotic fx and a 1.1% chance fo r the hips probability for fx in 10 years time. IMPRESSION: Osteopenia (T Score between -2.5 and -1). There is slightly increased risk of fracture and the patient may be considered for treatment. Re-Screen 2-5 years. NOTE: T-SCORE=SD OF THE YOUNG ADULT MEAN. [facility], , 01/01/2024 5:01 PM
[2024-01-01 19:52] LABS: ALT 18 U/L (8-44); AST 19 U/L (13-35); Albumin 4.2 g/dL (3.8-4.9); Albumin/Globulin Ratio 1.56 Ratio (1.60-3.17); Alkaline Phosphatase 71 U/L (41-126); Basophils % (A) 1.2 %; Blood Urea Nitrogen 10.5 mg/dL (9.0-27.0); Calcium 9.8 mg/dL (8.7-10.3); Carbon Dioxide 23.1 mmol/L (21.6-31.8); Chloride 103 mmol/L (96-109); Chol/HDL Ratio 5.03 Ratio; Eosinophils # (A) 0.59 X 10*3/uL (0.04-0.35); Eosinophils % (A) 7.3 %; Globulin 2.7 g/dL (1.6-3.3); Glucose 112 mg/dL (70-110); HCT 42.1 % (37.2-46.3); HGB 13.6 g/dL (12.0-15.0); LDL Cholesterol,Calculated 110.3 mg/dL (0.0-131.0); Lymphocytes # (A) 2.82 X 10*3/uL (0.90-5.00); Lymphocytes % (A) 34.9 %; MCH 30.4 pg (27.0-32.0); MCHC 32.3 g/dL (32.0-37.0); Mean Platelet Volume 11.4 FL (9.5-12.2); Monocytes # (A) 0.71 X 10*3/uL (0.20-1.00); Monocytes % (A) 8.8 %; NRBC Per 100 WBC 0 X 10*3/uL (0.00-0.01); Neutrophils # (A) 3.82 X 10*3/uL (1.80-7.70); Neutrophils % (A) 47.2 %; Platelet Count 271 X 10*3/uL (140-440); Potassium 4.4 mmol/L (3.5-5.5); RBC 4.48 X 10*6/uL (4.10-5.20); RDW 14.2 % (11.5-14.5); Sodium 140 mmol/L (135-145); Total Bilirubin 0.4 mg/dL (0.3-1.2); Total Protein 6.9 g/dL (6.2-8.2); WBC 8.09 X 10*3/uL (4.50-10.00)
[2024-01-01 20:03] LABS: Prostate Specific Antigen <0.01 ng/mL (0.000-4.000)
== END | disposition home or self-care (01) ==
LOC: RADMAMWWP 12:28
PROVIDERS: ATTEND Family Medicine
CPT/HCPCS: 77063; 77067; 77080; 80053; 80061; 84153; 84443; 85025

== ENCOUNTER 2024-07-15 06:42 | Day surgery (SDC) | payer MEDICARE, OTHER ==
[~2024-07-15 06:42] MED LIST changes: +ALPRAZolam 0.25 MG TAB PO PRN; +ALPRAZolam 0.5 MG TAB PO PRN; -ATROPINE OPHTH SOLN 1% 5ML BTL BOTH EYES PRN; +HEPARIN SODIUM,PORCINE (1 ML) 2,500 UNIT in SODIUM CHLORIDE 0.9% 250 ML IRRIGATION PRN; -LACTATED RINGERS 1,000 ML IV SCH; -MOXIFLOXACIN HCL 0.5% DROPS 3 ML BTL OP PRN; -TETRACAINE 0.5% OPHTH (PF) DROPS 4 ML BTL OP PRN; -TIMOLOL 0.5% OPHTH DROPS 5 ML BTL OP PRN; +ZOLPIDEM 5 MG TAB PO PRN
[2024-07-15 07:30] LABS: WBC 7.46 10*3/uL (4.50-10.00)
[2024-07-15 07:31] LABS: Basophils # (A) 0.09 10*3/uL (0.00-0.10); Basophils % (A) 1.2 %; Eosinophils # (A) 0.43 10*3/uL (0.04-0.35); Eosinophils % (A) 5.8 %; HCT 41.9 % (37.2-46.3); HGB 14.2 g/dL (12.0-15.0); Lymphocytes % (A) 34.9 %; MCH 30.5 pg (27.0-32.0); MCHC 33.9 g/dL (32.0-37.0); MCV 90.1 fL (80.0-97.0); Mean Platelet Volume 10.5 fL (9.5-12.2); Monocytes # (A) 0.79 10*3/uL (0.20-1.00); Monocytes % (A) 10.6 %; Neutrophils # (A) 3.48 10*3/uL (1.80-7.70); Neutrophils % (A) 46.6 %; Platelet Count 330 10*3/uL (140-440); RBC 4.65 10*6/uL (4.10-5.20); RDW 14.1 % (11.5-14.5)
[2024-07-15 07:44] VITALS: RESP 16; TEMP 98
[2024-07-15] MEDS: EMPTY BAG 1 BAG with SODIUM CHLORIDE 0.9% 1,000 ML IV SCH (07:45)
[2024-07-15] MEDS: IV FLUID CONTINUATION 1,000 ML IV ONE (07:46)
[2024-07-15] MEDS: fentaNYL (PF) 50 MCG/ML 2 ML AMP IVP ONE (08:40)
[2024-07-15] MEDS: MIDAZOLAM 2 MG/2 ML VIAL IVP ONE (08:40)
[2024-07-15] MEDS: LIDOCAINE 1% INJ 10MG/ML (20 ML MDV) SQ ONE (08:41)
[2024-07-15] MEDS: HEPARIN SODIUM 1,000 UN/ML (10ML VL) IV ONE (08:42)
[2024-07-15] MEDS: HEPARIN SODIUM,PORCINE 10,000 UNIT in SODIUM CHLORIDE 0.9% 1,000 ML IRRIGATION PRN (08:42)
[2024-07-15] MEDS: VERAPAMIL SYRINGE (5 MG/10 ML) INTRAARTER ONE (08:42)
[2024-07-15] MEDS: NITROGLYCERIN 1000MCG/10ML SYRINGE INTRAARTER ONE (08:42)
[2024-07-15] MEDS: IOPAMIDOL-370 100ML BTL INJ ONE (09:03)
--- NOTE | 2024-07-15 09:27 | P.OP ---
Date of Procedure: 07/15/24 Description of Procedure: Preoperative diagnosis: Nissa 3 peripheral arterial disease left lower extremity Postoperative diagnosis: Same Procedure: Ultrasound-guided left radial artery access Placement of catheter in infrarenal abdominal aorta, selective second order, from radial approach Aortogram with bilateral lower extremity runoffs Moderate conscious sedation with personal monitoring certified RN administration and personal hemodynamic monitoring for minutes Surgeon: Michelle Martino D.O. EBL: Less than 5 cc IV fluids: See records Urine output: Not measured Drains: None Complications: None immediately apparent Condition: Stable to recovery Operative indication and findings: Patient is a 68-year-old with peripheral vascular disease. On workup and evaluation was found to have abnormal ABIs prompting recommendations for an angiogram. Risks and benefits including but not limited to bleeding, infection, injury to the vessel, stroke, cardiopulmonary risks and ischemic changes to the extremities were discussed. They seemingly understood this willing to proceed. Procedure in detail: Patient was taken to the special suite and placed in supine position. The left upper extremity was prepped and draped in usual sterile fashion. A preprocedural timeout was performed, all parties were in agreement. Using the ultrasound, the radial artery was identified. The skin overlying was anesthetized with 1% lidocaine plain. The artery was patent without significant calcific disease and a permanent image was stored. Under direct visualization, the artery was accessed and Seldinger technique was used to place a 5 slender sheath. Catheters and wires were then used to selectively place a catheter across the subclavian, into the aortic arch and then selectively in the descending thoracic aorta and down into the abdominal aorta. Aortogram was performed. Catheter was then advanced to the level of the iliac bifurcation. A bilateral lower extremity step-off was performed. After satisfactory images, catheters and wires were removed. The sheath was removed and a TR band was placed. Angiographic interpretation: Visualized portions of the aorta appear normal in course and caliber. Renal vessels and visualized portions of the celiac and superior mesenteric artery are patent without significant disease. There is mild narrowing of the distal aorta. On the right, there is a short segment occlusion of the common iliac artery with quick reconstitution. The external iliac artery appears patent without significant disease although difficult to visualize due to bowel gas. The common femoral artery appears patent without significant disease. The superficial femoral and deep femoral arteries appear patent without significant disease. Through the leg, there is mild diffuse disease through the superficial femoral artery. There appears to be anterior tibial vessel which is patent without significant disease. The tibioperoneal trunk appears patent without significant disease. The posterior tibial and peroneal are difficult to visualize however appear patent with mild diffuse disease. On the left there appears to be some degree of plaquing of the left common iliac without significant stenosis. The internal and external iliac arteries appear patent without significant disease. The common femoral artery appears patent with mild disease. There is no visualization of the proximal superficial femoral artery. There is diminutive flow through the superficial femoral and retrograde fashion through the thigh however it appears to be bulky reconstitution at the distal superficial femoral artery via profunda branches. The profunda appears patent without significant disease. The popliteal artery appears patent without significant disease. The anterior tibial appears patent with mild diffuse disease and diminutive flow. It appears to be patent down to the ankle. The posterior tibial occludes at the mid calf and the peroneal vessel appears patent. Plan - Discharge Summary Discharge Rx Participant: No New Discharge Prescriptions: No Action Gabapentin [Neurontin] 300 mg PO TID Atorvastatin [Lipitor] 80 mg PO DAILY busPIRone HCL 10 mg PO BID Insulin Glargine,Hum.rec.anlog [Toujeo Solostar] 30 units SQ DAILY Albuterol Sulfate [Proair Hfa] 1 - 2 puff INHALATION RT-Q6H PRN PRN Reason: Dyspnea lisinopriL [Zestril] 10 mg PO DAILY Semaglutide [Ozempic] 2 mg SQ SMITH Levothyroxine Sodium [Synthroid] 75 mcg PO DAILY Pioglitazone [Actos] 30 mg PO DAILY cilostazoL 100 mg PO BID Fenofibrate 150 mg PO DAILY methocarbamoL 750 mg PO Q4H PRN PRN Reason: muscle spasms Vit D3 (Unk) 1 tab PO DAILY Topiramate 2 tab PO BID PRN PRN Reason: migraines Aspirin [Adult Low Dose Aspirin EC] 81 mg PO DAILY metFORMIN HCL 1,000 mg PO BID Meclizine [Antivert] 25 mg PO DAILY PRN PRN Reason: Vertigo Dapagliflozin Propanediol [Farxiga] 10 mg PO DAILY hydrOXYzine HCL [Atarax] 2 tab PO DIRECTED PRN PRN Reason: Itching [place]-3/Dha/Epa/Fish Oil [Fish Oil 1,000 mg Softgel] 2 tab PO BID PRN PRN Reason: migraines Pantoprazole Sodium [Protonix] 20 mg PO DAILY Discharge Medication List Albuterol Sulfate [Proair Hfa] 1 - 2 puff INHALATION RT-Q6H PRN 04/10/20 [History] Atorvastatin [Lipitor] 80 mg PO DAILY 04/10/20 [History] Gabapentin [Neurontin] 300 mg PO TID 04/10/20 [History] Insulin Glargine,Hum.rec.anlog [Toujeo Solostar] 30 units SQ DAILY 04/10/20 [History] busPIRone HCL 10 mg PO BID 04/10/20 [History] Levothyroxine Sodium [Synthroid] 75 mcg PO DAILY 12/12/22 [History] Meclizine [Antivert] 25 mg PO DAILY PRN 12/12/22 [History] Pioglitazone [Actos] 30 mg PO DAILY 12/12/22 [History] Semaglutide [Ozempic] 2 mg SQ SMITH 12/12/22 [History] lisinopriL [Zestril] 10 mg PO DAILY 12/12/22 [History] metFORMIN HCL 1,000 mg PO BID 12/12/22 [History] Aspirin [Adult Low Dose Aspirin EC] 81 mg PO DAILY 07/14/24 [History] Dapagliflozin Propanediol [Farxiga] 10 mg PO DAILY 07/14/24 [History] Fenofibrate 150 mg PO DAILY 07/14/24 [History] [place]-3/Dha/Epa/Fish Oil [Fish Oil 1,000 mg Softgel] 2 tab PO BID PRN 07/14/24 [History] Pantoprazole Sodium [Protonix] 20 mg PO DAILY 07/14/24 [History] Topiramate 2 tab PO BID PRN 07/14/24 [History] Vit D3 (Unk) 1 tab PO DAILY 07/14/24 [History] cilostazoL 100 mg PO BID 07/14/24 [History] hydrOXYzine HCL [Atarax] 2 tab PO DIRECTED PRN 07/14/24 [History] methocarbamoL 750 mg PO Q4H PRN 07/14/24 [History]
[2024-07-15 18:25] VITALS: BP 113/57; PULSE 74
--- NOTE | 2024-07-18 09:08 | IR ---
EXAMINATION TYPE: IR angio abdominal w runoff DATE OF EXAM: 07/16/2024 5:33 PM COMPARISON: Pre Operative Images if available both CT/MRI or plain film CLINICAL INDICATION: Female, 68 years old with history of BILATERAL LEG PAIN; TECHNIQUE: IR angio abdominal w runoff, multiple fluoroscopic images provided for procedure. DAP: 55.4 mGym2 Gycm2 uGym2 cGycm2 or equivalent. FINDINGS: IMPRESSION: 1. Report was generated for administrative purposes only. 2. Please see the operative/procedural note for further details. [facility], , 07/18/2024 9:06 AM
== END 2024-07-15 12:53 | disposition home or self-care (01) ==
LOC: CATHCVL 06:42
PROVIDERS: ATTEND Surgery
DX: I25.10 Atherosclerotic heart disease of native coronary artery without angina pectoris (principal); I10 Essential (primary) hypertension; I73.9 Peripheral vascular disease, unspecified; E11.9 Type 2 diabetes mellitus without complications; Z79.02 Long term (current) use of antithrombotics/antiplatelets; Z79.82 Long term (current) use of aspirin; Z79.84 Long term (current) use of oral hypoglycemic drugs; Z79.899 Other long term (current) drug therapy; Z87.891 Personal history of nicotine dependence
CPT/HCPCS: 36200; 75625; 75716; 76937; 85025; C1769 ×2; C1894; J2250; J1644 ×2; J2003; J3010; Q9967; J2305